=== PATIENT | female | born 1950 | race Caucasian/White ===

== ENCOUNTER 2017-11-13 08:00 | Outpatient (CLI) | payer OTHER ==
[2017-11-13 17:53] LABS: BASOPHILS % (AUTO) 0.5 %; EOSINOPHILS % (AUTO) 0.8 %; HGB - HEMOGLOBIN 13.7 g/dL (12.0-16.0); LYMPHOCYTES # (AUTO) 1.4 10^3/uL (1.5-3.5); MEAN CORPUSCULAR HEMOGLOBIN 30.9 pg (27.0-31.0); MEAN CORPUSCULAR HGB CONC 33.2 g/dL (32.0-36.0); MEAN PLATELET VOLUME 8.6 fL (7.9-10.8); MONOCYTES # (AUTO) 0.5 10^3/uL (0.0-1.0); MONOCYTES % (AUTO) 9.7 %; NEUTROPHILS # (AUTO) 3.5 10^3/uL (1.5-6.6); PLT - PLATELET COUNT 182 10^3/uL (130-450); RED BLOOD COUNT 4.43 10^6/uL (4.20-5.40); RED CELL DISTRIBUTION WIDTH 12.7 % (12.0-15.0); WHITE BLOOD COUNT 5.6 x10^3/uL (4.8-10.8)
[2017-11-13 18:15] LABS: ALBUMIN 4.2 g/dL (3.2-5.5); ALBUMIN/GLOBULIN RATIO 1.4 (1.0-2.2); ALKALINE PHOSPHATASE 55 IU/L (42-121); ALT ALANINE AMINOTRANSFERASE 17 IU/L (10-60); AST ASPARTATE AMINOTRANSFERASE 26 IU/L (10-42); BILIRUBIN,TOTAL 0.8 mg/dL (0.2-1.0); BUN - BLOOD UREA NITROGEN 20 mg/dL (6-20); CALCIUM 9.1 mg/dL (8.5-10.3); CARBON DIOXIDE - CO2 29 mmol/L (21-32); CHLORIDE 102 mmol/L (101-111); CHOL/HDL RATIO 3.1 (<4.4); CHOLESTEROL 232 mg/dL; CREATININE 0.8 mg/dL (0.4-1.0); GFR - MDRD 72 (>89); GLUCOSE 85 mg/dL (70-100); HDL CHOLESTEROL 74 mg/dL; LDL CHOLESTEROL,CALCULATED 139 mg/dL; LDL/HDL RATIO 1.9 (<4.4); SODIUM 138 mmol/L (135-145); TOTAL PROTEIN 7.1 g/dL (6.7-8.2); VLDL CHOLESTEROL 19 mg/dL
== END 2017-11-13 08:01 | disposition home or self-care (01) ==
LOC: LAB.R 08:00
PROVIDERS: ATTEND Physician Assistant Medical
DX: R31.9 Hematuria, unspecified (principal); R00.2 Palpitations; R00.0 Tachycardia, unspecified
CPT/HCPCS: 80053; 80061; 83721; 84443; 85025; 87086

== ENCOUNTER 2019-06-17 09:31 | Outpatient (CLI) | payer MEDICARE, OTHER ==
[2019-06-17 09:52] LABS: BASOPHILS % (AUTO) 0.7 %; EOSINOPHILS # (AUTO) 0.1 10^3/uL (0.0-0.7); EOSINOPHILS % (AUTO) 0.9 %; HGB - HEMOGLOBIN 14.1 g/dL (12.0-16.0); LYMPHOCYTES # (AUTO) 1.2 10^3/uL (1.5-3.5); LYMPHOCYTES % (AUTO) 21.2 %; MEAN CORPUSCULAR HEMOGLOBIN 30.3 pg (27.0-31.0); MEAN CORPUSCULAR HGB CONC 31.5 g/dL (32.0-36.0); MEAN CORPUSCULAR VOLUME 96.1 fL (81.0-99.0); MEAN PLATELET VOLUME 9.3 fL (7.9-10.8); MONOCYTES # (AUTO) 0.5 10^3/uL (0.0-1.0); MONOCYTES % (AUTO) 8.1 %; NEUTROPHILS % (AUTO) 68.9 %; PLT - PLATELET COUNT 202 10^3/uL (130-450); RED BLOOD COUNT 4.65 10^6/uL (4.20-5.40); RED CELL DISTRIBUTION WIDTH 12.7 % (12.0-15.0); WHITE BLOOD COUNT 5.8 x10^3/uL (4.8-10.8)
[2019-06-17 09:59] LABS: BILIRUBIN,URINE NEGATIVE (NEGATIVE); GLUCOSE, URINE (UA) NEGATIVE (NEGATIVE); KETONES,URINE (UA) TRACE mg/dL (NEGATIVE); LEUKOCYTE ESTERASE, URINE NEGATIVE (NEGATIVE); NITRITE,URINE NEGATIVE (NEGATIVE); OCCULT BLOOD,URINE NEGATIVE (NEGATIVE); PH,URINE 6.5 PH (5.0-7.5); PROTEIN,URINE NEGATIVE (NEGATIVE); UROBILINOGEN,URINE 0.2 (NORMAL) E.U./dL (NORMAL)
[2019-06-17 10:02] LABS: CLARITY,URINE CLEAR (CLEAR)
[2019-06-17 10:11] LABS: ALBUMIN 4.4 g/dL (3.2-5.5); ALBUMIN/GLOBULIN RATIO 1.5 (1.0-2.2); BILIRUBIN,TOTAL 0.6 mg/dL (0.2-1.0); CALCIUM 9.3 mg/dL (8.5-10.3); CREATININE 0.8 mg/dL (0.4-1.0); TOTAL PROTEIN 7.3 g/dL (6.7-8.2)
== END 2019-06-17 09:32 | disposition home or self-care (01) ==
LOC: LAB 09:31
PROVIDERS: ATTEND Family Medicine
DX: R10.9 Unspecified abdominal pain (principal)
CPT/HCPCS: 36415; 80053; 81001; 81003; 82150; 83690; 85025; 87086

== ENCOUNTER 2019-06-19 11:16 | Outpatient (CLI) | payer MEDICARE, OTHER ==
[2019-06-19] MEDS ORDERED: IOVERSOL 320 50 ML VIAL ONE (11:50)
[2019-06-19] MEDS ORDERED: IOVERSOL 320 100 ML VIAL IVP ONE ×2 (11:50→14:50)
[2019-06-19] MEDS ORDERED: IOVERSOL 320 50 ML VIAL PO ONE (14:50)
--- NOTE | 2019-06-19 17:28 | CT Report ---
Reason: ACUTE ABDOMINAL PAIN Procedure Date: 06/19/2019 Accession Number: [id number] / [id number] Procedure: CT - ABDOMEN W CPT Code: FULL RESULT: EXAM: CT ABDOMEN EXAM DATE: 06/19/2019 01:00 PM. CLINICAL HISTORY: ACUTE ABDOMINAL PAIN. COMPARISON: None. TECHNIQUE: Routine helical CT imaging was performed through the abdomen. IV contrast: OPTI 320 90ML Enteric contrast: Yes. Reconstruction: Coronal and sagittal. In accordance with CT protocol optimization, one or more of the following dose reduction techniques were utilized for this exam: automated exposure control, adjustment of mA and/or KV based on patient size, or use of iterative reconstructive technique. FINDINGS: Lung Bases: Unremarkable. Liver: Scattered sub-centimeter areas of low attenuation to small to accurately characterize.. No masses. Gallbladder/Bile Ducts: No radiopaque gallstones. Distal common bile duct to 5 mm. Spleen: Normal. Pancreas: Prominent pancreatic duct 2.9 mm Adrenal Glands: Normal. Kidneys: Normal. No masses or hydronephrosis. Peritoneal Cavity/Bowel: No free fluid, free air or adenopathy. No masses or acute inflammatory process. Copious fecal material throughout the colon Vasculature: No aneurysms or other significant abnormality. Bones: Degenerative change in the spine. No compression fracture or bone destruction Other: None. IMPRESSION: No acute or significant findings in the abdomen. A source for pain is not identified. RADIA
== END 2019-06-19 11:17 | disposition home or self-care (01) ==
LOC: DI 11:16
PROVIDERS: ATTEND Family Medicine
DX: R10.9 Unspecified abdominal pain (principal)
CPT/HCPCS: 74160; Q9967

== ENCOUNTER 2019-07-16 16:22 | Outpatient (CLI) | payer MEDICARE, OTHER ==
--- NOTE | 2019-07-18 12:00 | Mammography Report ---
Reason: SCREENING MAMMO Procedure Date: 07/16/2019 Accession Number: [id number] / [id number] Procedure: JOSH - Screening Mammo w/Zackery CPT Code: FULL RESULT: EXAM: Screening Mammo w/Zackery DATE: 07/16/2019 4:48 PM CLINICAL HISTORY: Screening encounter. TECHNIQUE: (B) - Bilateral CC and MLO views were obtained. COMPARISON: 02/15/2012 through 05/15/2007. PARENCHYMAL PATTERN: (D) - The breast(s) demonstrate(s) heterogeneously dense fibroglandular parenchyma. FINDINGS: There are no suspicious masses, calcifications, or areas of distortion. IMPRESSION: Negative examination. BI-RADS category 1. RECOMMENDATION: (ANNUAL) - Recommend routine annual screening mammography. BI-RADS CATEGORY: (1) - Negative. STANDARD QUALIFYING STATEMENTS: 1. This examination was not reviewed with the aid of Computer-Aided Detection (CAD). 2. A negative or benign imaging report should not preclude biopsy if clinically suspicious findings are present. 3. Dense breasts may obscure an underlying neoplasm. 4. This examination was reviewed with the aid of 3D breast imaging (tomosynthesis).
== END 2019-07-16 16:23 | disposition home or self-care (01) ==
LOC: DI 16:22
PROVIDERS: ATTEND Family Medicine
DX: Z12.31 Encounter for screening mammogram for malignant neoplasm of breast (principal)
CPT/HCPCS: 77063; 77067

== ENCOUNTER 2020-03-29 12:18 | Emergency (ER) | payer MEDICARE, OTHER ==
[2020-03-29 13:14] VITALS: BP 137/78
--- NOTE | 2020-03-29 13:17 | ED Physician Documentation ---
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 Since then she has had intermittent pain of the right shoulder that is worse with lifting it. 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 HEENT: Tonsil/Adenoidectomy - Present Medications Home Medications: Ambulatory Orders Medication Instructions Recorded Confirmed Cholecalciferol (Vitamin D3) 2,000 unit PO 05/15/15 05/15/15 [Vitamin D] Prazosin [Minipress] 1 mg PO QPM 05/15/15 05/15/15 Venlafaxine ER [Effexor ER] 225 mg PO DAILY 05/15/15 05/15/15 lamoTRIgine [LaMICtal] 100 mg PO DAILY 05/15/15 05/15/15 Ibuprofen [Motrin] 800 mg PO Q8H PRN #30 tablet 03/29/20 - Allergies Allergies/Adverse Reactions: Allergies Allergy/AdvReac Type Severity Reaction Status Date / Time No Known Allergies Allergy Mild Unknown Verified 05/14/15 19:47 - Social History Does the pt smoke?: No Smoking Status: Never smoker PD ED PE NORMAL - Vitals Vital signs reviewed: Yes - General General: Alert and oriented X 3, No acute distress - Extremities Extremities: Other (Mild tenderness of the glenohumeral joint without deformity. She abducts to about 90 degrees, but then it starts hurting. She does better passively. Internal and external rotation seem fairly is painless. Equal pulses and sensation throughout the hand and arm.) - Neuro Neuro: Alert and oriented X 3, Normal speech Results - Vitals Vitals: Vital Signs - 24 hr 03/29/20 03/29/20 12:23 13:13 Temperature 36.6 C 36.8 C Heart Rate 71 77 Respiratory 16 16 Rate Blood Pressure 105/81 H 137/78 H O2 Saturation 100 99 Oxygen O2 Source Room air - Rads (name of study) R shoulder Radiology: EMP read contemporaneously (VALENTÍN) Departure - Departure Disposition: 01 Home, Self Care Clinical Impression: Right shoulder strain Qualifiers: Encounter type: initial encounter Qualified Code(s): S46.911A - Strain of unspecified muscle, fascia and tendon at shoulder and upper arm level, right arm, initial encounter Condition: Good Record reviewed to determine appropriate education?: Yes Instructions: ED Tendinitis Rotator Cuff Prescriptions: Ibuprofen [Motrin] 800 mg PO Q8H PRN #30 tablet PRN Reason: PAIN &/OR FEVER Comments: Do the instructions as shown. Followup with your physician in 1 week if not better.
--- NOTE | 2020-03-29 13:59 | XRAY Report ---
PROCEDURE: Shoulder 3 View RT INDICATIONS: shoulder pain TECHNIQUE: 3 views of the shoulder were acquired. COMPARISON: None. FINDINGS: Bones: No fractures or dislocations. No suspicious bony lesions. Visualized ribs appear intact. A C joint degeneration, moderate. There is a spurring and sclerosis. Soft tissues: No suspicious soft tissue calcifications. IMPRESSION: Right shoulder joint degeneration. If the patient's pain or other symptoms persist, consider further evaluation with MRI. Reviewed by: Aime Obregon MD on 03/29/2020 1:58 PM PDT Approved by: Aime Obregon MD on 03/29/2020 1:58 PM PDT Station ID: [id number]
== END 2020-03-29 14:14 | disposition home or self-care (01) ==
LOC: ED 12:18
DX: S46.911A Strain of unspecified muscle, fascia and tendon at shoulder and upper arm level, right arm, initial encounter (principal); X50.0XXA Overexertion from strenuous movement or load, initial encounter; Y92.79 Other farm location as the place of occurrence of the external cause; M19.011 Primary osteoarthritis, right shoulder
CPT/HCPCS: 99283

== ENCOUNTER 2020-11-23 02:03 | Outpatient (CLI) | payer MEDICARE, OTHER | END 2020-11-23 23:59 | disposition home or self-care (01) | LOC: LAB.R 02:03 | PROVIDERS: ATTEND Physician Assistant | DX: N39.0 Urinary tract infection, site not specified (principal) | CPT/HCPCS: 87086 ==

== ENCOUNTER 2020-12-03 08:00 | Outpatient (CLI) | payer MEDICARE, OTHER ==
--- NOTE | 2020-12-03 10:44 | XRAY Report ---
PROCEDURE: Foot 3 View RT INDICATIONS: RIGHT FOOT PAIN TECHNIQUE: 3 views of the foot were acquired. COMPARISON: None FINDINGS: Bones: Mild osteopenia is seen. Osteoarthritic changes are noted throughout midfoot and forefoot crissy nts. No acute fracture or dislocation. No suspicious bony lesions. Soft tissues: No tibiotalar joint effusion. Achilles tendon appears normal. IMPRESSION: Midfoot and forefoot joint osteoarthritis. No right foot fracture or dislocation. Reviewed by: Kenton Jackson MD on 12/03/2020 10:43 AM [facility] Approved by: Kenton Jackson MD on 12/03/2020 10:43 AM [facility] Station ID: [id number]
== END 2020-12-03 23:59 | disposition home or self-care (01) ==
LOC: DI.S 08:00
PROVIDERS: ATTEND Physician Assistant Medical
DX: M19.071 Primary osteoarthritis, right ankle and foot (principal)

== ENCOUNTER 2020-12-23 08:00 | Outpatient (CLI) | payer MEDICARE, OTHER ==
--- NOTE | 2020-12-23 10:07 | XRAY Report ---
PROCEDURE: Foot 3 View RT INDICATIONS: RIGHT FOOT PAIN TECHNIQUE: 3 views of the foot were acquired. COMPARISON: None FINDINGS: Bones: Cortical step-off noted in the base of the second metatarsal which may represent accessory karsten abdulkadir artifact. No suspicious bony lesions. Soft tissues: No tibiotalar joint effusion. Achilles tendon appears normal. IMPRESSION: 1. Cortical step-off in the base of the second metatarsal which could represent displaced fracture or artifact. No If there is clinical concern for second metatarsal injury, then advanced imaging (CT, M R) should be considered for further evaluation. 2. Prominence of the Lisfranc joint. Lisfranc joint and injury is not excluded. Reviewed by: Treasure Taylor MD, PhD on 12/23/2020 10:06 AM PDT Approved by: Treasure Taylor MD, PhD on 12/23/2020 10:06 AM PDT Station ID: [id number]
== END 2020-12-23 23:59 | disposition home or self-care (01) ==
LOC: DI.S 08:00
PROVIDERS: ATTEND Physician Assistant Medical
DX: M79.671 Pain in right foot (principal)

== ENCOUNTER 2021-01-17 07:00 | Outpatient (CLI) | payer MEDICARE, OTHER ==
--- NOTE | 2021-01-17 15:39 | XRAY Report ---
PROCEDURE: Foot 3 View RT INDICATIONS: R FOOT PX TECHNIQUE: 3 views of the foot were acquired. COMPARISON: X-ray foot 12/23/2020 FINDINGS: Bones: Previous appearance of cortical step-off at the base of the second metatarsal is again identif ied. No significant interval change in alignment. No suspicious bony lesions. Soft tissues: No tibiotalar joint effusion. Achilles tendon appears normal. IMPRESSION: Persistent appearance of cortical step-off at the base of the second metatarsal appearing highly susp icious for fracture. If this remains of concern, further evaluation with CT may be obtained. Reviewed by: Santa Hitchcock MD on 01/17/2021 3:38 PM PDT Approved by: Santa Hitchcock MD on 01/17/2021 3:38 PM PDT Station ID: [id number]
== END 2021-01-17 23:59 | disposition home or self-care (01) ==
LOC: DI.N 07:00
PROVIDERS: ATTEND Orthopaedic Surgery
DX: M79.671 Pain in right foot (principal)

== ENCOUNTER 2021-02-15 18:20 | Outpatient (CLI) | payer MEDICARE, OTHER ==
--- NOTE | 2021-02-16 09:48 | XRAY Report ---
PROCEDURE: Foot 3 View RT INDICATIONS: NONDISPLACED FX OF 2ND METATARSAL OF R FOOT TECHNIQUE: 3 views of the foot were acquired. COMPARISON: 01/17/2021 and 12/23/2020 FINDINGS: Bones: There is interval further healing at second metatarsal base fracture site. No new fracture or dislocation is seen. Alignment of right foot is anatomic. Midfoot and forefoot joint osteoarthritic c hanges are seen. No suspicious bony lesions. Soft tissues: No tibiotalar joint effusion. Achilles tendon appears normal. IMPRESSION: Interval further healing at second metatarsal base fracture site with anatomic right foot alignment. Midfoot and forefoot joint osteoarthritis. No new fracture or dislocation. Reviewed by: Kenton Jackson MD on 02/16/2021 9:47 AM PDT Approved by: Kenton Jackson MD on 02/16/2021 9:47 AM PDT Station ID: [id number]
== END 2021-02-15 23:59 | disposition home or self-care (01) ==
LOC: DI.N 18:20
PROVIDERS: ATTEND Orthopaedic Surgery
DX: S92.324A Nondisplaced fracture of second metatarsal bone, right foot, initial encounter for closed fracture (principal); M19.071 Primary osteoarthritis, right ankle and foot

== ENCOUNTER 2021-03-22 08:26 | Outpatient (CLI) | payer MEDICARE, OTHER ==
--- NOTE | 2021-03-22 13:37 | MRI Report ---
PROCEDURE: Thoracic Spine W/O INDICATIONS: CERVICALGIA, PAIN IN LEFT SHOULDER TECHNIQUE: Noncontrast sagittal T1 spine echo and T2 fast spin echo, sagittal STIR, axial T1 and T2 fast spin ec ho through the thoracic spine. COMPARISON: MRI cervical spine 03/22/2021 FINDINGS: Image quality: Excellent. Alignment and Curvature: There is normal bony alignment. Bone Marrow: Marrow is of normal overall signal. No acute vertebral body compression fractures. Spinal Cord: Visualized spinal cord is normal in size and signal. Paraspinous Soft Tissues: No paravertebral masses. Miscellaneous: Multilevel disc desiccation is present throughout the thoracic spine. Minimal disc bulges are noted at T4-5, T5-6, T6-7, T7-8, T8-9, T10-11, T11-12. Minimal left foraminal narrowing is noted at T11-12. IMPRESSION: 1. Multilevel disc desiccation and disc bulges as above. Reviewed by: Santa Hitchcock MD on 03/22/2021 1:36 PM PDT Approved by: Santa Hitchcock MD on 03/22/2021 1:36 PM PDT Station ID: [id number]
--- NOTE | 2021-03-22 13:43 | MRI Report ---
PROCEDURE: Cervical Spine W/O INDICATIONS: CERVICALGIA, PAIN IN LEFT SHOULDER TECHNIQUE: Noncontrast sagittal T1 spin echo and T2 fast spin echo, sagittal STIR, foraminal oblique sagittal T2 fast spin echo, and axial gradient echo or T2 fast spin echo through the cervical spine. COMPARISON: MR thoracic spine 03/22/2021 FINDINGS: Image quality: Excellent. Alignment and Curvature: There is trace anterolisthesis of C3 on C4, trace retrolisthesis of C4 on C 5, C5 on C6, C6 on C7.. Bone Marrow: Marrow demonstrates normal overall signal. Spinal Cord: Visualized spinal cord has normal size and signal. No cerebellar tonsillar herniation. Paraspinous Soft Tissues: No paravertebral masses. Prevertebral soft tissues are normal in thicknes s. Discs: Moderate to severe desiccation is present throughout the cervical spine. C2-C3: No disc bulge, spinal stenosis or foraminal narrowing. C3-C4: Minimal disc bulge with mild spinal stenosis. Minimal left foraminal narrowing with uncovert ebral hypertrophy. C4-C5: Mild disc bulge with mild to moderate spinal stenosis. Ejua-ld-mivczjah right and mild left f oraminal narrowing with uncovertebral hypertrophy. C5-C6: Mild disc bulge with mild spinal stenosis. Severe right and moderate left foraminal narrowing with uncovertebral hypertrophy. C6-C7: Mild disc bulge without spinal stenosis. Omrr-xb-fzesymcx left and mild right foraminal narro wing with uncovertebral hypertrophy. C7-T1: No disc bulge, spinal stenosis or foraminal narrowing. IMPRESSION: 1. Multilevel disc bulges. 2. Multiple spinal stenosis most notable at C4-5 secondary to disc bulge. 3. Multilevel foraminal narrowing most severe at C5-6 secondary to uncovertebral arthropathy. Reviewed by: Santa Hitchcock MD on 03/22/2021 1:42 PM PDT Approved by: Santa Hitchcokc MD on 03/22/2021 1:42 PM PDT Station ID: [id number]
== END 2021-03-22 08:27 | disposition home or self-care (01) ==
LOC: DI 08:26
PROVIDERS: ATTEND Orthopaedic Surgery
DX: M50.221 Other cervical disc displacement at C4-C5 level (principal); M48.02 Spinal stenosis, cervical region; M51.24 Other intervertebral disc displacement, thoracic region; M25.512 Pain in left shoulder

== ENCOUNTER 2022-02-13 08:04 | Outpatient (CLI) | payer MEDICARE, OTHER ==
[2022-02-13 14:51] LABS: BASOPHILS % (AUTO) 0.3 %; HGB - HEMOGLOBIN 13.8 g/dL (12.0-16.0); LYMPHOCYTES # (AUTO) 1.2 10^3/uL (1.5-3.5); LYMPHOCYTES % (AUTO) 29.4 %; MEAN CORPUSCULAR HEMOGLOBIN 31.3 pg (27.0-31.0); MEAN CORPUSCULAR HGB CONC 32.1 g/dL (32.0-36.0); MEAN CORPUSCULAR VOLUME 97.5 fL (81.0-99.0); MEAN PLATELET VOLUME 10.3 fL (7.9-10.8); MONOCYTES # (AUTO) 0.4 10^3/uL (0.0-1.0); MONOCYTES % (AUTO) 9.5 %; NEUTROPHILS # (AUTO) 2.3 10^3/uL (1.5-6.6); NEUTROPHILS % (AUTO) 59.5 %; PLT - PLATELET COUNT 173 10^3/uL (130-450); RED BLOOD COUNT 4.41 10^6/uL (4.20-5.40); WHITE BLOOD COUNT 3.9 x10^3/uL (4.8-10.8)
[2022-02-13 15:24] LABS: T4 (THYROXINE) 9.26 ug/dL (6.09-12.23)
[2022-02-13 15:26] LABS: THYROID STIMULATING HORMONE 1.92 uIU/mL (0.34-5.60)
[2022-02-13 15:29] LABS: FREE T4 (FREE THYROXINE) 1.12 ng/dL (0.58-1.64)
[2022-02-13 15:37] LABS: FOLATE 16.62 ng/mL (5.90 - >24.8)
[2022-02-13 15:38] LABS: % IRON SATURATION 22 % (20-50); ALBUMIN 4.1 g/dL (3.2-5.5); ALBUMIN/GLOBULIN RATIO 1.6 (1.0-2.2); ALKALINE PHOSPHATASE 54 IU/L (42-121); ALT ALANINE AMINOTRANSFERASE 22 IU/L (10-60); AST ASPARTATE AMINOTRANSFERASE 22 IU/L (10-42); BILIRUBIN,TOTAL 0.6 mg/dL (0.2-1.0); BUN - BLOOD UREA NITROGEN 19 mg/dL (6-20); CALCIUM 9.2 mg/dL (8.5-10.3); CARBON DIOXIDE - CO2 28 mmol/L (21-32); CHLORIDE 102 mmol/L (101-111); CHOL/HDL RATIO 2.8 (<4.4); CHOLESTEROL 229 mg/dL; CREATININE 0.9 mg/dL (0.4-1.0); GFR - MDRD 62 (>89); GLUCOSE 94 mg/dL (70-100); HDL CHOLESTEROL 83 mg/dL; IRON 81 ug/dL (28-170); LDL CHOLESTEROL,CALCULATED 136 mg/dL; LDL/HDL RATIO 1.6 (<4.4); POTASSIUM 4.4 mmol/L (3.5-5.0); SODIUM 138 mmol/L (135-145); TOTAL IRON BINDING CAPACITY 375 ug/dL (250-450); TOTAL PROTEIN 6.6 g/dL (6.7-8.2); TRANSFERRIN 268 mg/dL (192-382); TRIGLYCERIDES 49 mg/dL; VLDL CHOLESTEROL 10 mg/dL
[2022-02-13 20:12] LABS: ESTIMATED AVERAGE GLUCOSE 105 mg/dL (70-100); HEMOGLOBIN A1c% 5.3 % (4.27-6.07)
== END 2022-02-13 08:05 | disposition home or self-care (01) ==
LOC: LAB.S 08:04
PROVIDERS: ATTEND Nurse Practitioner Family
DX: F33.2 Major depressive disorder, recurrent severe without psychotic features (principal)
CPT/HCPCS: 36415; 80053; 80061; 82607; 82746; 83036; 83540; 83721; 84436; 84439; 84443; 84466; 84482; 85025

== ENCOUNTER 2022-08-04 11:46 | Emergency (ER) | payer MEDICARE, OTHER ==
[2022-08-04 11:57] VITALS: BP 133/68
--- OUTSIDE RECORDS SUMMARY | 2022-08-04 12:33 | EXTERNAL MEDICAL SUMMARY RPT | Continuity of Care Document ---
:1950 Author Organization [facility] Address [address] [place] [address] Phone Care Team Providers Name Role Phone Unavailable Unavailable Unavailable Bar Mayes, Rodney Unavailable Unavailable Allergies No information. Encounters No information. Functional Status No information. Immunizations No information. Medications No information. Problems No information. Procedures date description facility +0000 Visit Code Hold [facility] [place] Results/Labs No information. Social History date description facility +0000 Never smoker [facility] [place] Vital Signs date measurement value units +0000 BMI BMI 23.65 kg/m2 +0000 BP_diastolic BP_diastolic 81 mmHg +0000 BP_systolic BP_systolic 122 mmHg [id number]+0000 heart_rate heart_rate 63 /min [id number]+0000 height_metric height_metric 167.64 cm +0000 height_standard height_standard 66 in +0000 respiration_rate respiration_rate 16 /min [id number]+0000 temperature_metric temperature_metric 36.5 C [id number]+0000 temperature_standard temperature_standard 9 7.7 F [id number]+0000 weight_metric weight_metric 66.22 kg [id number]+0000 weight_standard weight_standard 146 lb
--- NOTE | 2022-08-04 13:12 | Ultrasound Report ---
PROCEDURE: Duplex Ext Veins Left INDICATIONS: pain/swelling TECHNIQUE: Real-time imaging, as well as color and pulse Doppler interrogation, were performed of the lower extr emity deep veins from the inguinal ligament to the popliteal fossa. COMPARISON: None. FINDINGS: The deep veins are normally compressible, and free of intraluminal thrombus. Color and pu lse Doppler demonstrate normal phasic intraluminal flow. There is normal augmentation response to di stal compression maneuver. There is a long thin Lockwood's cyst measuring 8.4 x 3.3 x 0.9 cm. Question ruptured Lockwood's cyst. IMPRESSION: Negative left lower extremity duplex ultrasound for DVT. Long thin Lockwood's cyst, possibl y representing a ruptured Lockwood's cyst. Reviewed by: Josué Santiago MD on 08/04/2022 1:10 PM PDT Approved by: Josué Santiago MD on 08/04/2022 1:10 PM PDT Station ID: [id number]
--- NOTE | 2022-08-04 13:50 | ED Physician Documentation ---
PD HPI LOWER EXT INJURY - Stated complaint Stated Complaint: L LEG PX - Chief complaint Chief Complaint: Ext Problem - History obtained from History obtained from: Patient - History of Present Illness PD HPI LOW EXT INJURY LOCATION: Left Pain level max: 6 Pain level now: 4 Contributing factors: No: Anticoagulated - Additional information Additional information: Patient is a 71-year-old female who presents to the emergency department left lower leg pain for the past 4 days. Mainly behind the knee. Worse with movement, better with rest. She states she was seen at the walk-in clinic yesterday and was told she could have a blood clot and to come here if the pain worsened. No recent surgery. No recent travel. No history of blood clots. No fevers. No chills. No chest pain. No shortness of breath. No palpitations. 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 HEENT: Tonsil/Adenoidectomy - Present Medications Home Medications: Ambulatory Orders Medication Instructions Recorded Confirmed Cholecalciferol (Vitamin D3) 2,000 unit PO 05/15/15 05/15/15 [Vitamin D] Prazosin [Minipress] 1 mg PO QPM 05/15/15 05/15/15 Venlafaxine ER [Effexor ER] 225 mg PO DAILY 05/15/15 05/15/15 lamoTRIgine [LaMICtal] 100 mg PO DAILY 05/15/15 05/15/15 Ibuprofen [Motrin] 800 mg PO Q8H PRN #30 tablet 03/29/20 - Allergies Allergies/Adverse Reactions: Allergies Allergy/AdvReac Type Severity Reaction Status Date / Time No Known Allergies Allergy Mild Unknown Verified 08/04/22 11:57 - Social History Does the pt smoke?: No Smoking Status: Never smoker Does the pt drink ETOH?: Yes Does the pt have substance abuse?: No - Immunizations Immunizations are current?: Yes PD ED PE NORMAL - Vitals Vital signs reviewed: Yes - General General: Alert and oriented X 3, No acute distress - HEENT HEENT: Moist mucous membranes - Respiratory Respiratory: No respiratory distress - Derm Derm: Warm and dry - Extremities Extremities: No edema, No calf tenderness / cord, Other (Mild tenderness upon the left knee. No joint effusion. Neurovascular intact. No bony tenderness or deformity. Full range of motion. ) - Neuro Neuro: Alert and oriented X 3 - Psych Psych: Normal mood, Normal affect Results - Vitals Vitals: Vital Signs - 24 hr 08/04/22 11:54 Temperature 36.4 C L Heart Rate 77 Respiratory 16 Rate Blood Pressure 133/68 H O2 Saturation 99 Oxygen O2 Source Room air - Rads (name of study) Duplex ultrasound left lower extremity Radiology: Final report received, EMP read contemporaneously, See rad report PD MEDICAL DECISION MAKING - ED course Complexity details: reviewed results, considered differential, d/w patient ED course: 71-year-old female with a longstanding Lockwood's cyst, possible ruptured. No DVT on ultrasound. We will continue supportive care and have her follow-up with her doctor for further care. Patient counseled regarding signs and symptoms for which I believe and urgent re-evaluation would be necessary. Patient with good understanding of and agreement to plan and is comfortable going home at this time This document was made in part using voice recognition software. While efforts are made to proofread this document, sound alike and grammatical errors may occur. IMPRESSION: Negative left lower extremity duplex ultrasound for DVT. Long thin Lockwood's cyst, possibly representing a ruptured Lockwood's cyst. Departure - Departure Disposition: 01 Home, Self Care Clinical Impression: Lockwood's cyst of knee Qualifiers: Laterality: left Qualified Code(s): M71.22 - Synovial cyst of popliteal space [Lockwood], left knee Condition: Good Instructions: ED Cyst Lockwood Follow-Up: your,doctor as needed [Other] Comments: Your ultrasound does not show any evidence of a blood clot today, but you do have a Lockwood's cyst. If this continues to cause problems, you can see orthopedics for further care. Return if you worsen
== END 2022-08-04 13:55 | disposition home or self-care (01) ==
LOC: ED 11:46
DX: M71.22 Synovial cyst of popliteal space [Baker], left knee (principal)
CPT/HCPCS: 99282; 99284

== ENCOUNTER 2022-12-26 10:00 | Outpatient (CLI) | payer MEDICARE, OTHER ==
--- NOTE | 2022-12-27 10:04 | Mammography Report ---
BILATERAL DIGITAL SCREENING MAMMOGRAM 3D/2D: 12/26/2022 CLINICAL: Routine screening. Family history of breast cancer. Comparison is made to exams dated: 07/16/2019 mammogram and 02/15/2012 mammogram - [facility]. Both breasts are heterogeneously dense, which may obscure small masses (category c / 51-75% glandular tissue). No significant masses, calcifications, or other findings are seen in either breast. There has been no significant interval change. IMPRESSION: NEGATIVE There is no mammographic evidence of malignancy. A 1 year screening mammogram is recommended. Based on the Tyrer Cuzick model (a risk assessment model) the patients lifetime risk is 6.9% and her 10 year risk is 4.4%. According to the ACR, ACS, and NCCN guidelines, an annual breast MRI exam eduardo g with mammogram is recommended if the patients lifetime risk is 20% or greater. This exam was interpreted at Station ID: [id number]. NOTE: For mammograms, a report in lay terms will be sent to the patient. Approximately 15% of breast malignancies will not be visualized mammographically. In the management of a palpable breast mass, a negative mammogram must not discourage biopsy of a clinically suspicious lesion. Electronically Signed By: Deb fuller/galo:12/26/2022 18:05:54 letter sent: No_Letter ACR BI-RADS Category 1: Negative 3341F PARENCHYMAL PATTERN: (D) - The breast(s) demonstrate(s) heterogeneously dense fibroglandular mavis sandra. BI-RADS CATEGORY: (1) - 1 Mammogram [id number] 1 year screening LATERALITY: (B)
== END 2022-12-26 10:01 | disposition home or self-care (01) ==
LOC: DI.S 10:00
DX: Z12.31 Encounter for screening mammogram for malignant neoplasm of breast (principal)

== ENCOUNTER 2023-01-03 08:00 | Outpatient (CLI) | payer MEDICARE, OTHER | END 2023-01-03 23:59 | disposition home or self-care (01) | LOC: LAB 08:00 | PROVIDERS: ATTEND Nurse Practitioner | DX: R30.0 Dysuria (principal) | CPT/HCPCS: 87086; 87181 ==

== ENCOUNTER 2023-03-27 15:04 | Outpatient (CLI) | payer MEDICARE, OTHER ==
--- NOTE | 2023-03-27 16:44 | DEXA Report ---
PROCEDURE: Dexa Spine and/or Hip INDICATIONS: POST MENOPAUSAL TECHNIQUE: Dual energy x-ray absorptiometry (DXA) was performed on a [employer] ([employer] System. Regions measur ed are the AP Spine, femoral neck, and if needed forearm. COMPARISON: None FINDINGS: Lumbar Spine: Bone Mineral Density 1.1 g/cm/cm,T score -0.6. Normal bone density Left Forearm: Bone Mineral Density 0.5 g/cm/cm, T score -2.1; Osteopenia Impression: By WHO criteria, this patient has normal lumbar spine bone density and left forearm osteopenia. Patients with diagnosis of osteoporosis or osteopenia should have regular bone mineral density assess ment. For those eligible for Medicare, routine testing is allowed once every 2 years. Testing frequ ency can be increased for patients who have rapidly progressing disease or for those who are receivin g medical therapy to restore bone mass. Reviewed by: Linda Hinkle MD on 03/27/2023 4:43 PM PDT Approved by: Linda Hinkle MD on 03/27/2023 4:43 PM PDT Station ID: [id number]
== END 2023-03-27 15:05 | disposition home or self-care (01) ==
LOC: DI 15:04
PROVIDERS: ATTEND Family Medicine
DX: Z78.0 Asymptomatic menopausal state (principal); M85.88 Other specified disorders of bone density and structure, other site